=== PATIENT | female | born 1970 | race Caucasian/White ===

== ENCOUNTER 2016-04-26 06:47 | Emergency (ER) | payer OTHER ==
[~2016-04-26] VITALS: Ht 172.7 cm; Wt 90.9 kg
[~2016-04-26 06:47] MED LIST: BUPR300T51 PO; BUSP10TA2 PO; ETON68IM3 SQ; HYDR50TA76 PO; QUET50TA PO
[2016-04-26 06:54] VITALS: BP 112/78; PULSE 66; RESP 18; O2SAT 97
--- NOTE | 2016-04-26 06:55 | ED.REPORT ---
HPI-General Illness Date of Service Apr 26, 2016 ED Provider: Patient is a 45 year old female who reports to the ED reporting with intractable trapezius muscle pain onset one week ago and increasing in severity since. Pt c/o associated diaphoresis and paresthesia limited to right hand. Pt went to a massage therapist yesterday which was not helpful in relieving symptoms. She denies any associated injury that could have caused symptoms. Nursing Notes Stated Complaint: PINCHED NERVE Chief Complaint: General Complaint Nursing Notes Reviewed: Yes Allergies: Coded Allergies: No Known Allergies (Unverified Allergy, Unknown, 04/26/16) Scheduled Bupropion ER (Wellbutrin XL) 300 Mg Tab.er.24h 300 MG PO DAILY Buspirone (Buspirone) 10 Mg Tablet 10 MG PO TID Etonogestrel (Nexplanon) 68 Mg Implant 68 MG SQ DAILY Hydroxyzine HCl (HydrOXYzine Hcl) 50 Mg Tablet 100 MG PO DAILY Prednisone (PredniSONE) 20 Mg Tablet 20 MG PO ASDIRECTED 3 tabs daily for 4 days, then 2 tabs daily for 4 days, then 1 tabs daily for 4 days, then 1/2 tab daily for 4 days Quetiapine Fumarate (Seroquel) 50 Mg Tablet 50 MG PO HS Scheduled PRN Diazepam (Valium) 5 Mg Tablet 5 MG PO TID PRN PRN For Pain Naproxen (Naproxen) 500 Mg Tab 500 MG PO BID PRN PRN For Pain Oxycodone (Roxicodone) 5 Mg Tablet 5-10 MG PO QID PRN PRN For Pain General Time Seen by MD: 06:54 Chief Complaint Other (right arm pain) Hx Obtained From: Patient Arrived By: Walk-in Sudden in Onset?: Yes Onset Occurred: Yesterday Symptom Duration: Since onset Location: : Arm right: Shoulder right Radiation: : Does not radiate Severity: Current: Moderate Severity: Maximum: Moderate Recent Healthcare: No recent hospitalization Similar Sx Previous: No Past Medical History Past Medical History Anxiety Sleep apnea Reports: Depression Past Surgical History R breast lumpectomy D&C Smoking History Current Every Day Smoker Social History Parents live nearby Alcohol Use: In recovery Drug Use: In recovery, IV drugs, Meth Other Social History: Lives alone, Local resident Ambulatory Status Independent Review of Systems Full Review of Systems Musculoskeletal: Reports: Extremity pain (right arm and shoulder) Skin: Reports Diaphoresis Psychiatric: Reports: Anxiety Complete sys rev & neg: except as marked. Physical Exam Vital Signs Vital Signs Date Time Temp Pulse Resp B/P Pulse Ox O2 Delivery O2 Flow Rate FiO2 04/26/16 14:23 36.3 69 15 160/74 100 Room Air 04/26/16 14:06 69 15 160/74 100 Room Air 04/26/16 10:12 64 15 137/77 100 Room Air 04/26/16 09:15 62 14 142/83 100 Room Air 04/26/16 06:54 36.3 66 18 112/78 97 Room Air Initial VS: Reviewed Head / Eyes: Atraumatic, Normocephalic, PERRL ENT: Mucous membranes moist, Conjunctiva normal, No scleral icterus Respiratory: Breath sounds normal, Clear to auscultation, No respiratory distress Cardiovascular: Regular rate & rhythm, Heart sounds normal, Intact distal pulses Abdomen / GI: Soft, Non-tender, No guarding, No rebound, No distention Skin: Warm, Dry, No cyanosis Psychiatric: Mood/affect normal, Behavior normal, Normal thought content General/Constitutional: Awake, Alert Distress / Hydration: Positive: Distress moderate Back: Full range of motion, No midline vertebral tend right paraspinal/trapezius TTP with spasm Upper Extremities Right Shoulder: Positive: Tenderness present... (to palpatation along right trapezius muscle) pain worsens with range of motion intact motor function Skin: Atraumatic, Color NL, No rash, Warm Neurologic: Oriented X3, Speech NL, No motor deficits, No sensory deficits, Cerebellar NL, Gait NL distal paresthesia to 2nd and 3rd fingers, otherwise intact sensation to pinprick throughout the arm and distal into the abdomen, no motor loss Interpretation & Diagnostics Interpretation & Diagnostics: CERVICAL SPINE MRI IMPRESSION: 1. Most prominent level identified is at C6-7 with a disc bulge and superimposed prominent posterior protrusion, causing compromise of the right lateral recess and right foramina as above. Dictated by: Martha Sanchez M.D. on 04/26/2016 at 13:25 Approved by: Martha Sanchez M.D. on 04/26/2016 at 13:25 Lab Results Interpretation Result Diagram: 04/26/16 0910 04/26/16 0910 Test 04/26/16 09:10 04/26/16 11:27 White Blood Count 15.6th/mm3 (3.8-10.1) Red Blood Count 4.54mil/mm3 (3.90-5.20) Hemoglobin 14.3g/dL (12.0-15.6) Hematocrit 42.6% (35.0-46.0) Mean Corpuscular Volume 93.8fL (81-100) Mean Corpuscular Hemoglobin 31.5pg (27.0-35.0) Mean Corpuscular Hemoglobin Concent 33.6% (32.0-37.0) Red Cell Distribution Width 12.7% (12.3-15.4) Platelet Count 282bil/L (150-400) Neutrophils (%) (Auto) 77.8% (40-74) Lymphocytes (%) (Auto) 15.0% (14-46) Monocytes (%) (Auto) 5.5% (4-12) Eosinophils (%) (Auto) 1.1% (0-5) Basophils (%) (Auto) 0.3% (0-3) Erythrocyte Sedimentation Rate 7mm/hr (0-32) D-Dimer < 0.5mg/L (<0.50) Sodium Level 136mEq/L (134-144) Potassium Level 4.5mEq/L (3.5-5.2) Chloride Level 100mEq/L (97-108) Carbon Dioxide Level 20mmol/L (18-29) Blood Urea Nitrogen 13mg/dL (6-24) Creatinine 0.65mg/dL (0.57-1.00) Estimat Glomerular Filtration Rate 141mL/min (>59) Glucose Level 111mg/dL (60-99) Calcium Level 9.5mg/dL (8.5-10.1) Magnesium Level 2.0mg/dL (1.6-2.6) Total Bilirubin 0.4mg/dL (0.0-1.2) Aspartate Amino Transf (AST/SGOT) 20U/L (0-50) Alanine Aminotransferase (ALT/SGPT) 13U/L (0-32) Alkaline Phosphatase 55U/L (25-150) Troponin T < 0.010ug/L (0.0-0.011) C-Reactive Protein < 0.0mg/dL (0.0-0.5) Total Protein 7.7g/dL (6.4-8.4) Albumin 4.6g/dL (3.4-5.0) Hold Urine Received (Received) ECG Interpretation Interpreted by: ED physician Normal ECG Interpretation: Normal ECG w/ rate of... (62) X-Ray Chest Interpretation Chest Xray Interpretation: IMPRESSION: Normal chest radiographs, without an imaging explanation found for the patient's presenting history of chest/right shoulder pain. Dictated by: Romain Garcia M.D. on 04/26/2016 at 8:15 Approved by: Romain Garcia M.D. on 04/26/2016 at 8:15 View: Portable Interpretation / Wet Read by: Interpret - Radiologist Re-Eval/Medical Decision Med Decision/Clinical Course Ultimately this patient has some radicular symptoms from her cervical spine, MRI was obtained in the ER due to difficult to manage symptoms and persistent pain. spine surgery was consulted, and the MRI, and will see this patient tomorrow in clinic. Does not feel that this needs emergent surgical decompression. Patient will be discharged with pain management. Return precautions given. Time of Eval: 08:39 Patient Status: Condition unchanged, No relief Re-Evaluation/Progress Note: Pt rechecked. Pt is still tearful and pain meds have not lessened symptoms. Time of Eval: 10:13 Patient Status: Condition unchanged, Mild relief Re-Evaluation/Progress Note: Pt rechecked. Pt reports mild relief of pain but still experiencing numbness in right fingers. Time of Eval: 11:33 Patient Status: Mild relief Re-Evaluation/Progress Note: Pt rechecked. Informed pt of plan for MRI. Ordered more pain meds. Consultation #1: Referral / Consult Name: Kelechi Villagomez MD Call Returned at: 10:40 [place] Man: Agrees with eval, Agrees with plan Note: Case discussed with Dr. Villagomez. Recommended outpatient MRI and follow up with with Dr. Villagomez. Consultation #2: Referral / Consult Name: Kelechi Villagomez MD Call Returned at: 13:47 Note: Pt can be seen in clinic tomorrow, needs a PCP for pain pills. Counseled Regarding: Diagnosis, Lab results, Need for follow-up, When/why to return to ED Discharge & Departure Primary Impression: Cervical radiculopathy Disposition: Home Discharge Condition All VS Reviewed: Yes Condition: Stable Additional Instructions: We are so sorry that you are experiencing such terrible pain. It seems that we have identified the problem which is that you have some compression of the nerve as it comes out of the right side of your spine and we have talked with the spine surgeon who wants to see you tomorrow in clinic. Call the clinic today for a follow-up appointment. We will put you on multiple different medications to help manage your pain. Use naproxen, oxycodone, Valium, prednisone to treat your symptoms. Follow up with the spine surgeon tomorrow to further discuss treatment options. Call your primary care provider to help set up ongoing pain management. We hope that you begin feeling better soon. Referrals: Jasmine Vigil MD (PCP) Marleen Attestation Portion of this note were transcribed by Jorden Dawson. I, Dr. Altamirano, personally performed the history, physical exam, and medical decision-making: I reviewed and confirmed the accuracy for the information in the transcribed note. Signed by: marleen Myers, 04/26/16 [id number] copies to: Jasmine Vigil MD, Timothy S DO Apr 26, 2016 06:55 JORDEN DAWSON Apr 26, 2016 07:06
[2016-04-26] MEDS ORDERED: HYDROmorphone 1 mg/mL Inj IM ONE (08:25)
[2016-04-26 09:15] VITALS: BP 142/83; PULSE 62; RESP 14; O2SAT 100
--- NOTE | 2016-04-26 09:17 | DRSVH ---
PROCEDURE: X-RAY CHEST, TWO VIEWS ([id number]) INDICATIONS: chest/right shoulder pain TECHNIQUE: 2 views of the chest were acquired. COMPARISON: [facility], CR, XR CHEST 2VW, 12/17/2014, 17:09. FINDINGS: Surgical changes and devices: None. Lungs and pleura: No pleural effusions or pneumothorax. Lungs are clear. Mediastinum: Mediastinal contours are normal. Heart size is normal. Bones and chest wall: No suspicious bony abnormalities. Soft tissues appear unremarkable. IMPRESSION: Normal chest radiographs, without an imaging explanation found for the patient's presenting history o f chest/right shoulder pain. Dictated by: Romain Garcia M.D. on 04/26/2016 at 8:15 Approved by: Romain Garcia M.D. on 04/26/2016 at 8:15
[2016-04-26] MEDS: fentaNYL-PF 50 mCg/mL 2 mL Inj IVPUSH PRN ×4 (09:30→13:23)
[2016-04-26 09:32] LABS: BASOPHILS % (AUTO) 0.3 % (0-3); EOSINOPHILS % (AUTO) 1.1 % (0-5); MONOCYTES % (AUTO) 5.5 % (4-12); Mean Corpuscular Hemoglobin 31.5 pg (27.0-35.0); Mean Corpuscular Volume 93.8 fL (81-100); NEUTROPHILS % (AUTO) 77.8 % (40-74); Platelet Count 282 bil/L (150-400)
[2016-04-26 10:04] LABS: TROPONIN T < 0.010 ug/L (0.0-0.011)
[2016-04-26 10:12] VITALS: BP 137/77; PULSE 64; RESP 15; O2SAT 100
[2016-04-26] MEDS ORDERED: Ketorolac 15 mg/mL Inj IVPUSH ONE (13:20)
--- NOTE | 2016-04-26 13:26 | DRSVH ---
PROCEDURE: MRI CERVICAL SPINE WITHOUT CONTRAST ([id number]) INDICATIONS: right neck/upper back pain with radiculopathy TECHNIQUE: Noncontrast sagittal T1 spin echo and T2 fast spin echo, sagittal STIR, foraminal oblique sagittal T2 fast spin echo, and axial gradient echo or T2 fast spin echo through the cervical spine. COMPARISON: None. FINDINGS: Image quality: Excellent. Alignment and Curvature: There is reversal of the normal cervical curvature. There is trace retrolist hesis of C2 on C3, C5 on C6, C6 on C7 and trace anterolisthesis of C3 on C4. Bone Marrow: Marrow demonstrates normal overall signal. Minimal reactive endplate changes are presen t at C6-7. Spinal Cord: Visualized spinal cord has normal size and signal. No cerebellar tonsillar herniation. Paraspinous Soft Tissues: No paravertebral masses. Prevertebral soft tissues are normal in thicknes s. Discs: Mild to moderate desiccation is present throughout the cervical spine. C2-C3: No disc bulge, spinal stenosis or foraminal narrowing. C3-C4: Minimal disc bulge without spinal stenosis. Mild to moderate left and mild right foraminal lashawn rowing with uncovertebral hypertrophy. C4-C5: Minimal disc bulge without spinal stenosis. Minimal left foraminal narrowing. C5-C6: Minimal disc bulge without spinal stenosis. Mild bilateral foraminal narrowing with uncoverteb ral hypertrophy. C6-C7: Mild disc bulge with prominent posterior/right paracentral protrusion. There is significant co mpromise of the right lateral recess as well as effacement of the anterior thecal sac. This material is also noted within the proximal and mid right foramina. C7-T1: No disc bulge, spinal stenosis or foraminal narrowing. IMPRESSION: 1. Most prominent level identified is at C6-7 with a disc bulge and superimposed prominent posterior protrusion, causing compromise of the right lateral recess and right foramina as above. Dictated by: Martha Sanchez M.D. on 04/26/2016 at 13:25 Approved by: Martha Sanchez M.D. on 04/26/2016 at 13:25
[2016-04-26] MEDS ORDERED: fentaNYL-PF 50 mCg/mL 2 mL Inj IVPUSH ONE (14:05)
[2016-04-26] MEDS ORDERED: predniSONE 20 mg Tablet PO ONE (14:05)
[2016-04-26 14:06] VITALS: BP 160/74; PULSE 69; RESP 15; O2SAT 100
[2016-04-26] MEDS ORDERED: PRE20 PO (14:18)
[2016-04-26] MEDS ORDERED: DIAZ5TAB PO (14:18)
[2016-04-26] MEDS ORDERED: NPR500T PO (14:18)
[2016-04-26] MEDS ORDERED: OXYC-474 PO (14:18)
[2016-04-26 14:23] VITALS: BP 160/74; PULSE 69; RESP 15; O2SAT 100
[2016-06-02] MEDS ORDERED: LAMO25TA PO (10:35)
[2016-06-02] MEDS ORDERED: OXYC-465 PO (10:35)
[2016-06-02] MEDS ORDERED: BUSP10TA2 PO (10:35)
[2016-06-02] MEDS ORDERED: FLUT16SP NS (10:35)
[2016-06-02] MEDS ORDERED: DOCU250C2 PO (10:35)
== END 2016-04-26 14:24 | disposition home or self-care (01) ==
LOC: SED 06:47
DX: M54.12 Radiculopathy, cervical region (principal); F17.210 Nicotine dependence, cigarettes, uncomplicated
CPT/HCPCS: 36415; 71020; 72141; 80053; 83735; 84484; 85025; 85379; 85651; 86140; 93005; 96372; 96374; 96375; 96376; 99285; J1170; J1885; J3360

== ENCOUNTER 2016-05-09 05:54 | Emergency (ER) | payer OTHER ==
[~2016-05-09] VITALS: Ht 172.7 cm; Wt 90.9 kg
[~2016-05-09 05:54] MED LIST changes: +DIAZ5TAB PO; +NPR500T PO; +OXYC-474 PO; +PRE20 PO
[2016-05-09 06:02] VITALS: BP 132/79; PULSE 96; RESP 18; O2SAT 100
--- NOTE | 2016-05-09 06:12 | ED.REPORT ---
HPI-General Illness Date of Service May 09, 2016 ED Provider: Espinoza Altamirano DO The patient is a 45 year old female who presents to the emergency department complaining of a headache that began a few days ago. Her pain is constant but she repots intermittent "shooting" pain that she calls "zingers." Her pain is worse on the left side. The pain does not radiate anywhere. Over the first few nights she also noticed a fever and chills, but this has resolved. She took Ibuprofen and oxycodone 10 mg at 0400 with no relief. She has had similar symptoms intermittently since she has been a child. She was previously diagnosed with cluster headaches. She states her symptoms today are worse. She denies fever, chills, nausea, vomiting, diarrhea, cough, sore throat, photophobia, numbness, tingling or weakness. Her mother has also experienced similar symptoms. Nursing Notes Stated Complaint: HEAD PAIN Chief Complaint: Headache Nursing Notes Reviewed: Yes Allergies: Coded Allergies: No Known Allergies (Unverified Allergy, Unknown, 04/26/16) Scheduled Bupropion ER (Wellbutrin XL) 300 Mg Tab.er.24h 300 MG PO DAILY Buspirone (Buspirone) 10 Mg Tablet 10 MG PO TID Etonogestrel (Nexplanon) 68 Mg Implant 68 MG SQ DAILY Hydroxyzine HCl (HydrOXYzine Hcl) 50 Mg Tablet 100 MG PO DAILY Prednisone (PredniSONE) 20 Mg Tablet 20 MG PO ASDIRECTED 3 tabs daily for 4 days, then 2 tabs daily for 4 days, then 1 tabs daily for 4 days, then 1/2 tab daily for 4 days Prochlorperazine Maleate (Compazine) 10 Mg Tablet 10 MG PO TID Quetiapine Fumarate (Seroquel) 50 Mg Tablet 50 MG PO HS Sulfamethoxazole/Trimeth 800-160 mg (Bactrim DS) 1 Each Tablet 1 TABLET PO BID Scheduled PRN Diazepam (Valium) 5 Mg Tablet 5 MG PO TID PRN PRN For Pain Naproxen (Naproxen) 500 Mg Tab 500 MG PO BID PRN PRN For Pain Oxycodone (Roxicodone) 5 Mg Tablet 5-10 MG PO QID PRN PRN For Pain Oxycodone (Roxicodone) 5 Mg Tablet 5-10 MG PO Q4H PRN PRN For Pain General Time Seen by MD: 06:12 Chief Complaint Headache Hx Obtained From: Patient, Other family... Arrived By: Walk-in Sudden in Onset?: No Onset Occurred: 1 - 4 hours ago Symptom Duration: Since onset Location: : Head Quality: Painful (shooting) Radiation: : Does not radiate Severity: Current: Moderate Severity: Maximum: Severe Recent Healthcare: No recent hospitalization Similar Sx Previous: Yes Past Medical History Past Medical History Anxiety Sleep apnea Headaches Reports: Depression Past Surgical History R breast lumpectomy D&C Family History Noncontributory Smoking History Current Every Day Smoker Social History Parents live nearby Alcohol Use: In recovery Drug Use: In recovery, IV drugs, Meth Other Social History: Good social support, Lives alone, Local resident Ambulatory Status Independent Review of Systems Full Review of Systems Constitutional: Reports: Chills (initially, now resolved), Fever (initially, now resolved) GI: Denies: Diarrhea, Nausea, Vomiting Musculoskeletal: Denies: Extremity pain, Neck pain Neurologic: Reports: Headache, Denies: Focal weakness, Numbness Complete sys rev & neg: except as marked. Physical Exam Vital Signs Vital Signs Date Time Temp Pulse Resp B/P Pulse Ox O2 Delivery O2 Flow Rate FiO2 05/09/16 13:08 36.7 74 12 121/74 98 Room Air 05/09/16 12:52 36.7 74 12 121/74 98 Room Air 05/09/16 08:44 77 12 104/ 96 Room Air 05/09/16 06:02 37.4 96 18 132/79 100 Room Air Initial VS: Reviewed Respiratory: Breath sounds normal, Clear to auscultation, No respiratory distress Cardiovascular: Regular rate & rhythm, Heart sounds normal, Intact distal pulses Abdomen / GI: Soft, Non-tender, No guarding, No rebound, No distention Lymphatic: No lymphadenopathy Extremities: Vascular intact, Neuro intact, No swelling, No tenderness Skin: Warm, Dry, No cyanosis Psychiatric: Mood/affect normal, Behavior normal, Normal thought content General/Constitutional: Awake, Alert, Cooperative Behavior: Positive: Tearful Head / Eyes: Atraumatic, Normocephalic, PERRL, EOMI There is no tenderness, warmth, redness, rash or fluctuance. ENT: Airway patent, Mucous membranes moist, Pharynx NL, Tympanic membs NL, Ext aud canal NL, Mastoid area NL Neck: Atraumatic, Supple, No meningismus, Full range of motion, No adenopathy, No swelling, Non-tender, No midline vertebral tend, No masses Back: Non-tender, No midline vertebral tend Flank / Spine / Paraspinal: Positive: Flank tender R Neurologic: Oriented X3, Speech NL, No motor deficits, CN II - XII intact, Cerebellar NL, Memory NL Paraesthesias in right hand, 3rd and 2nd finger (unchanged from previous visit) Interpretation & Diagnostics Lab Results Interpretation Result Diagram: 05/09/16 0700 05/09/16 0700 Test 05/09/16 07:00 05/09/16 08:58 05/09/16 11:41 White Blood Count 14.9th/mm3 (3.8-10.1) Red Blood Count 3.90mil/mm3 (3.90-5.20) Hemoglobin 12.3g/dL (12.0-15.6) Hematocrit 37.0% (35.0-46.0) Mean Corpuscular Volume 94.9fL (81-100) Mean Corpuscular Hemoglobin 31.5pg (27.0-35.0) Mean Corpuscular Hemoglobin Concent 33.2% (32.0-37.0) Red Cell Distribution Width 13.0% (12.3-15.4) Platelet Count 214bil/L (150-400) Neutrophils (%) (Auto) 79.2% (40-74) Lymphocytes (%) (Auto) 9.4% (14-46) Monocytes (%) (Auto) 8.5% (4-12) Eosinophils (%) (Auto) 2.1% (0-5) Basophils (%) (Auto) 0.3% (0-3) Erythrocyte Sedimentation Rate 42mm/hr (0-32) Sodium Level 136mEq/L (134-144) Potassium Level 4.1mEq/L (3.5-5.2) Chloride Level 98mEq/L (97-108) Carbon Dioxide Level 21mmol/L (18-29) Blood Urea Nitrogen 13mg/dL (6-24) Creatinine 0.85mg/dL (0.57-1.00) Estimat Glomerular Filtration Rate 103mL/min (>59) Glucose Level 126mg/dL (60-99) Calcium Level 8.9mg/dL (8.5-10.1) C-Reactive Protein 20.1mg/dL (0.0-0.5) Procalcitonin 5.51ng/mL (See Comment) Urine Color Straw (YELLOW) Urine Appearance Hazy (CLEAR,HAZY) Urine pH 6.5 (5.0-8.0) Urine Specific [place] 1.015 (1.003-1.035) Urine Protein Tracemg/dL (NEG,TRACE) Urine Glucose (UA) Negativemg/dL (NEGATIVE) Urine Ketones Negativemg/dL (NEGATIVE) Urine Occult Blood Large (NEGATIVE) Urine Nitrite Positive (NEGATIVE) Urine Bilirubin Negative (NEGATIVE) Urine Urobilinogen Normalmg/dL (NORMAL) Urine Leukocyte Esterase Small (NEGATIVE) Urine RBC 3-10/hpf (0-2) Urine WBC 11-50/hpf (0-5) Urine Epithelial Cells Occasional/hpf (NONE-MOD) Urine Crystals None seen (NONE SEEN) Urine Bacteria Many/hpf (NONE-FEW) Urine Hyaline Casts None/lpf (NONE) Urine Granular Casts None seen (NONE SEEN) Urine Waxy Casts None seen (NONE SEEN) Urine Red Blood Cell Casts None seen (NONE SEEN) Urine White Blood Cell Casts None seen (NONE SEEN) Urine Mucus None seen (None Seen) Urine Trichomonas None seen (NONE SEEN) Urine Yeast None (NONE SEEN) Urinalysis Comment None Urine Culture Reflexed Indicated CSF Appearance Clear (CLEAR) CSF Color Colorless (COLORLESS) CSF WBC 3/mm3 (0-5) CSF RBC 2/mm3 CSF Mononuclear WBCs % CSF Polynuclear WBCs % CSF Other Cells CSF Glucose 77mg/dL (45-90) CSF Total Protein 23mg/dL (15-45) CT Head Interpretation IMPRESSION: No acute intracranial abnormality. No explanation for headache. Dictated by: Robert Tucker M.D. on 05/09/2016 at 9:21 Study: Head CT no contrast Interpretation / Wet Read by: Interpret - Radiologist Procedures Lumbar Puncture Text / Dict Note: Obtained clear fluid. Time: 10:39 Procedure Performed by: ED physician Consent / Setup / Site Prep: Informed consent provided, Consent from patient , Time-out performed, Hand hygiene observed, Stand sterile technique, Sterile drapes applied, Patient sitting up Skin Preparation Agent: Hibiclens - Chlorhexidine Local Anesthesia: Lidocaine 1% Inserted Needle at: L3 L4 Second Attempt at: L3 L4 Post-Procedure / Complications: Antibiotic oint applied, Dressing applied, No complications, Tolerated procedure well, Patient stable Re-Eval/Medical Decision Med Decision/Clinical Course This patient overall has a rather strange presentation which ultimately seems to be pyelonephritis. She has a familial headache pattern present in both her mother and her aunt with associated intermittent sharp pains to her head. Other than headache and reported fever she did have other classic findings of meningitis. Overall her symptoms do not sound like subarachnoid hemorrhage. However, given her recent steroid use and reported fever as well as a rather odd presentation for headache syndrome, the more resource intensive workup was performed which initially began with CBC, basic metabolic panel, erythrocyte sedimentation rate and CRP. She has significantly elevated sedimentation rate and CRP compared to prior. She does endorse signs of urinary tract infection and has overtly positive urine. Overall this is a difficult explanation for urinary tract infection except for the fact that she reports having these symptoms previously with infectious processes. Infectious disease was contacted and is specifically in regard to this and did recommend lumbar puncture. All of her CSF indices were normal including a rapid PCR for common infectious causes of meningitis. Ultimately it seems that this patient has a headache syndrome associated with an illness. It should be noted in relation to her acute illness, her inflammatory markers are elevated however clinically after medication with a cocktail of Compazine, Benadryl, dexamethasone, Toradol, 1 L normal saline, the patient has remained largely asymptomatic and feeling better. Her vital signs have been stable. She does not appear to be in septic shock or life-threatening illness at this time. She received 2 g of IV Rocephin in the ER while awaiting results of her CSF studies, and subsequently is requesting to go home as she is feeling somewhat better. While she does have markers of an inflammatory process going on, clinically she does not appear to be in severe sepsis or septic shock which would necessitate hospitalization, she is not in intractable pain or vomiting, and she is requesting to go home. She will be discharged on oxycodone, Compazine and Benadryl, Bactrim. Strict return and follow-up precautions are given. I certainly entertain the possibility that she may have ongoing cervical pathology or other spinal cord pathology, this is unlikely given the absence of new or progressive neurologic symptoms that would follow a dermatomal or spinal cord pattern. Her MRI from 2 weeks ago was reviewed and she did not seem to have significant upper cervical pathology. Additionally she repeatedly on multiple occasions denied an upper respiratory infection or pneumonia type symptoms, her lungs are clear and she had a recent chest x-ray. For these reasons no repeat chest x-ray was obtained. She had no focal abdominal pain and no further abdominal workup was performed for this reason. Source of Hx: Old records, Family Time of Eval: 07:40 Re-Evaluation/Progress Note: The patient is sleeping and feeling much better. Time of Eval: 08:37 Re-Evaluation/Progress Note: Rechecked the patient. She repeated that her only symptoms have been fever and headache. She has not noticed any neurologic symptoms. She specifically denies neuro deficits going down one side of her body. She states she may have a UTI because she has noticed foul smelling urine. Discussed plan for additional labs, head CT and lumbar puncture. Time of Eval: 09:30 Re-Evaluation/Progress Note: Rechecked the patient. She is feeling better. Discussed urinalysis and head CT results. The patient would not like a lumbar puncture at this time if she does not need it. Time of Eval: 10:03 Re-Evaluation/Progress Note: Rechecked the patient. Discussed plan for lumbar puncture. She is initially unwilling to have the procedure. She would like to be discharged home with antibiotics. Discussed risks and warnings of being discharged home without having the test. After discussing this further she is now agreeable with plan. Consent form signed at this time. Time of Eval: 12:02 Re-Evaluation/Progress Note: Rechecked the patient. Discussed lab results, diagnosis, and plan for discharge. All questions were addressed. Time of Eval: 12:35 Re-Evaluation/Progress Note: Rechecked the patient. She continues to be asymptomatic. We discussed that her biofire PCR is not done but that the other LP results were normal. She feels comfortable going home and agrees to return if the biofire PCR is abnormal. Consultation : Referral / Consult Name: Ed Peña MD Call Returned at: 10:03 Note: Spoke with the on-call infectious disease specialist. He recommends doing a lumbar puncture and biofire PCR. Counseled Regarding: Diagnosis, Lab results, Need for follow-up, When/why to return to ED Discharge & Departure Primary Impression: Headache Headache type: unspecified Headache chronicity pattern: unspecified pattern Intractability: not intractable Qualified Code: R51 - Headache Additional Impression: UTI (urinary tract infection) Urinary tract infection type: site unspecified Hematuria presence: with hematuria Qualified Code: N39.0 - Urinary tract infection, site not specified Disposition: Home Discharge Condition All VS Reviewed: Yes Condition: Stable Patient Instructions: Urinary Tract Infection in Women (ED) Additional Instructions: Thank you for entrusting us with your care today. Your urinalysis is consistent with a urinary tract infection. Your head CT today is normal. The results from your lumbar puncture are also negative. I have prescribed you an antibiotic for the urinary tract infection. Followup with your regular doctor in the next 2-3 days for recheck. Return to the emergency department for increased pain, neck stiffness, change in your headaches, vomiting, numbness, weakness, speech changes, vision changes, or any other new or concerning symptoms. Referrals: Jasmine Vigil MD (PCP) Scribe Attestation Portions of this note were transcribed by Janie Ham. I, Dr. Altamirano personally performed the history, physical exam and medical decision-making; I reviewed and confirmed the accuracy of the information in the transcribed note. Signed by: Diallo Etienne, 05/09/2016 and 1300. copies to: Jasmine Vigil MD, Timothy S DO May 09, 2016 06:12 Janie Ham May 09, 2016 06:37
[2016-05-09] MEDS ORDERED: ProchlorPERazine 5 mg/mL 2 mL Inj IVPUSH ONE (06:40)
[2016-05-09] MEDS ORDERED: 0.9% Sodium Chloride 1,000 ML IV ONE (06:40)
[2016-05-09] MEDS ORDERED: Dexamethasone 10 mg/mL Inj IVPUSH ONE (06:40)
[2016-05-09 07:30] LABS: BASOPHILS % (AUTO) 0.3 % (0-3); EOSINOPHILS % (AUTO) 2.1 % (0-5); MONOCYTES % (AUTO) 8.5 % (4-12); Mean Corpuscular Hemoglobin 31.5 pg (27.0-35.0); Mean Corpuscular Volume 94.9 fL (81-100); NEUTROPHILS % (AUTO) 79.2 % (40-74); Platelet Count 214 bil/L (150-400)
[2016-05-09 08:38] LABS: ERYTHROCYTE SEDIMENTATION RATE 42 mm/hr (0-32)
[2016-05-09 08:44] VITALS: BP_SYST 104; PULSE 77; RESP 12; O2SAT 96
[2016-05-09 09:13] LABS: APPEARANCE,URINE HAZY (CLEAR,HAZY); COLOR,URINE STRAW (YELLOW); OCCULT BLOOD,URINE LARGE (NEGATIVE); PH,URINE 6.5 (5.0-8.0); UROBILINOGEN,URINE NORMAL (NORMAL)
--- NOTE | 2016-05-09 09:23 | DRSVH ---
PROCEDURE: CT BRAIN WITHOUT CONTRAST ([id number]) INDICATIONS: headache, elevated ESR, CRP TECHNIQUE: Noncontrast 4.5 mm thick angled axial sections acquired from the foramen magnum to the vertex, with c oronal reformats. COMPARISON: None. FINDINGS: Image quality: Excellent. CSF spaces: Basal cisterns are patent. No extra-axial fluid collections. Ventricles are normal in size and shape. Brain: No midline shift. No intracranial masses or hemorrhage. [place]-white matter interface is norm al. Skull and face: Calvarium and visualized facial bones are intact, without suspicious lesions. Sinuses: Visualized sinuses and mastoids are clear. IMPRESSION: No acute intracranial abnormality. No explanation for headache. Dictated by: Robert Tucker M.D. on 05/09/2016 at 9:21 Approved by: Robert Tucker M.D. on 05/09/2016 at 9:22
[2016-05-09] MEDS ORDERED: cefTRIAXone Inj 2,000 MG in Dextrose 5% Minibag Plus 50 ML IV ONE (09:35)
[2016-05-09 11:55] LABS: APPEARANCE,CSF CLEAR (CLEAR); COLOR,CSF COLORLESS (COLORLESS); WHITE BLOOD CELL,CSF 3 /mm3 (0-5)
[2016-05-09] MEDS ORDERED: OXYC-474 PO (12:51)
[2016-05-09] MEDS ORDERED: SULF1TAB7 PO (12:51)
[2016-05-09] MEDS ORDERED: PROC-4 PO (12:51)
[2016-05-09 12:52] VITALS: BP 121/74; PULSE 74; RESP 12; O2SAT 98
[2016-05-09 13:08] VITALS: BP 121/74; PULSE 74; RESP 12; O2SAT 98
[2016-06-02] MEDS ORDERED: OXYC-465 PO (10:35)
[2016-06-02] MEDS ORDERED: FLUT16SP NS (10:35)
[2016-06-02] MEDS ORDERED: DOCU250C2 PO (10:35)
[2016-06-02] MEDS ORDERED: LAMO25TA PO (10:35)
[2016-06-02] MEDS ORDERED: BUSP10TA2 PO (10:35)
== END 2016-05-09 12:52 | disposition home or self-care (01) ==
LOC: SED 05:54
DX: R51 Headache (principal); N39.0 Urinary tract infection, site not specified; B96.20 Unspecified Escherichia coli [E. coli] as the cause of diseases classified elsewhere; R20.2 Paresthesia of skin; F17.200 Nicotine dependence, unspecified, uncomplicated
CPT/HCPCS: 36415; 62270; 70450; 80048; 81000; 82308; 82945; 84155; 85025; 85651; 86140; 87040; 87070; 87077; 87086; 87088; 87150; 87186; 87205; 87496; 87498; 87529; 87532; 87798; 89051; 96361; 96365; 96375; 99285; J0696; J0780; J1100; J1200; J7030

== ENCOUNTER 2016-06-06 09:53 | Inpatient (IN) | payer OTHER ==
--- NOTE | 2016-06-01 18:50 | PCM.HPSURG ---
Subjective Date of Service: May 22, 2016 Referring Provider: Admitting Physician: Primary Care Physician: Jasmine Vigil MD Attending Physician: Kelechi Villagomez MD Chief Complaint SEE BELOW History of Present Illness Patient: Opal Can Date of : 1970 Visit Type: Pre Op Visit Date: 05/22/2016 01:00 PM This 45 year old female presents for Preop C6-7 ACDF w/ allograft & plating. History of Present Illness: 1. Preop C6-7 ACDF w/ allograft & plating Opal Can is a 45 year old female referred by Primary Care Provider (PCP) Dr. Jasmine Vigil M.D. who presents today's date 05/22/2016 for a preoperative type of appointment concerning the decision for surgery involving C6-7 anterior cervical discectomy and fusion, with allograft bone, & anterior cervical plating from C6-7 secondary to a diagnosis of cervical disc herniation with myeloradiculopathy with related complaints of severe, intractable, and debilitating headache, neck pain, & spasm referred & radiating to bilateral shoulders & right upper extremity with numbness, paresthesias, dysesthesias & weakness including difficulty with coordination, dexterity, & bladder spasticity. This patient was last evaluated by Dr. Kelechi Villagomez M.D. on 05/18/2016 documenting a 4 year history of mild constant local neck pain with flareups of more intense pain associated with headache and stiffness. She is also had episodes of radiating pain and right shoulder blade over the past 4 years that usually occur in the morning when she first wakes up. She developed severe right arm pain primarily involving the posterior forearm and middle digits. She reports constant numbness and paresthesias in the right hand and middle digits in a C7 distribution. She was seen in the emergency room 04/26/2016 for intractable neck and right arm pain. An MRI scan of the cervical spine show a right C6-7 disc protrusion causing a subtle compression of the right anterior cord, lateral recess stenosis and compression of the right C7. She was discharged from the emergency room with a supply of oral steroids, anti- inflammatory agents, muscle relaxants and narcotic analgesics. She was seen in consultation urgently by Neurosurgery on 04-27-2016 and referred to her primary care provider for management of her pain control and a trial of medical management. It should be noted that this patient has a history of cigarettes for the past 25 year, but quit smoking 9 days ago, to prepare for surgery. This patient has some symptoms suggestive of cervical myelopathy including tightness of the musculature in the mid thoracic region, jitteriness in her hands, some loss of coordination in her hands with deterioration of her handwriting and bladder spasticity voiding 2-3 times at night over the past 2-3 years. She had a progression of right hand numbness, paresthesias and pharmacy coordinator weakness, and was here for re-evaluation. Because of the progression of symptoms of cervical myelopathy and radiculopathy, she will be scheduled promptly for surgery, C6-[address] Kelechi Villagomez M.D. the patient has cervical disc herniation causing significant symptomatic & intractable myeloradiculopathy indicating neurosurgical decompression, fusion, & instrumented stabilization. Dr. Villagomez and the patient discussed all the risks and benefits associated with the proposed procedure as well as reasonable expectations with regards to surgical outcomes & the patient elected to proceed with surgery as planned. The patient denies any related complete or acute loss of control of bowel or bladder function, saddle paresthesia or anesthesia. The patient has a pertinent positive past medical, surgical and social history for tubal ligation, colposcopy, benign breast lumpectomy, history of constipation, depression, anxiety, & just quit smoking after 25 years. The patient's related complaints have been a serious detriment to their happiness and activities of daily living. Having failed conservative treatment the patient presents today for their decision for surgery appointment involving C6-7 anterior cervical discectomy and fusion, with allograft bone, & anterior cervical plating from C6-7 for treatment of cervical disc herniation with myelopathy & radiculopathy; related to severe, intractable, and debilitating headache, neck pain, & spasm referred & radiating to bilateral shoulders & right upper extremity with numbness, paresthesias, dysesthesias & weakness including difficulty with coordination, dexterity, & bladder spasticity. The procedure is scheduled to be performed by Dr. Kelechi Villagomez M.D. on 2016. Problem List: Problem Description Current smoker Medical/Surgical/Interim History Reviewed, no change. Last detailed document date:05/22/2016. Family History: Reviewed, no changes. Last detailed document date:05/22/2016. Social History (Reviewed, updated) 05/22/2016 Tobacco use reviewed. Preferred language is Amharic. The patient does not need an process operator. Smoking status: Former smoker. Smoking Status Use Status Type Smoking Status Years Used Total Pack Years yes Cigarette Former smoker Allergies: Ingredient Reaction Medication Name Comment NO KNOWN ALLERGIES Reviewed, no changes. Review of Systems System Neg/Pos Details MS Positive Back pain, Muscle weakness, Neck stiffness. Neuro Negative Dizziness, headache and seizures. ENMT Negative Hearing loss. Integumentary Negative Mrsa and rash. Negative Dysuria, urge incontinence and urinary incontinence. GI Negative Abdominal pain, constipation, diarrhea, nausea and vomiting. Endocrine Negative Weight gain and weight loss. Cardio Negative Chest pain, irregular heartbeat/palpitations, leg swelling and pacemaker. Constitutional Negative Chills and fever. Vic/Lymph Negative Blood clots. MS Negative Bone/joint symptoms. Eyes Negative Double vision and vision loss. Psych Negative Anxiety and depression. Respiratory Negative Dyspnea, apnea and wheezing. Vital Signs Height Time ft in cm Last Measured Height Position % 12:51 PM 5.0 8.50 173.99 03/27/2014 Weight/BSA/BMI Time lb oz kg Context % BMI kg/m2 BSA m2 12:51 PM 195.80 88.813 dressed with shoes 29.34 2.07 Blood Pressure Time BP mm/Hg Position Side Site Method Cuff Size 12:51 PM 124/78 sitting left wrist automatic adult Temperature/Pulse/Respiration Time Temp F Temp C Temp Site Pulse/min Pattern Resp/ min 12:51 PM 97.2 36.2 84 regular Pain Scale Time Pain Score Method 12:51 PM 3/10 Numeric Pain Intensity Scale Measured By Time Measured by 12:51 PM Rosa Vasquez MA Screening Summary:o The following were reviewed: tobacco use Physical Exam Exam Findings Details Comments WD/WN, female who is AO x 3, cooperative,& appears to be in NAD w/ language & speech that is intact & fluent. There is no evidence of recent or remote memory impairment. The patient's knowledge is appropriate for age & level of education w/ a pleasant affect & euthymic mood. Ambulates w/ no difficulty. NC/AT, PERRL, EOMI, w/o facial droop, hearing grossly intact, nostrils patent, oral cavity and pharynx normal. Neck supple, w/o LAD or thyromegaly. Heart reveals RRR w/o audible murmurs Lungs CTAB Abdomen is NT/ND Decreased ROM of Cervical Spine Neg Spurlings, positive Hoffmans right, Neg Lhermittes Neg Tinnels, Neg Phalens, tenderness over the right cubital tunnel causing pain in an ulnar distribution to the mid forearm Motor Strength: 4+ /5 sensation right tricep & right hand pharmacy coordinator 4/5, otherwise 5/ 5 throughout in UEs and LEs Diminished sensation in the right hand in a C6 & C7 distribution DTRs, are 2+ in UEs and LEs, no clonus Assessment/Plan # Detail Type Description 1. Assessment Cervical myelopathy with cervical radiculopathy (M47.12). 2. Assessment Preop examination (Z01.818). Patient Plan We including your Attending Surgeon have discussed the risks and benefits associated your scheduled procedure which you have verbally acknowledged understanding including but not limited to the possibility of an outcome that we are unable to predict or was not mentioned. 1. You are scheduled for a C6-7 anterior cervical discectomy and fusion, with allograft bone, & anterior cervical plating from C6-[address] Kelechi Villagomez M.D. at [facility] on 06/06/2016. 2. Check in time is 11:30 AM. Also please ignore instructions below if told otherwise by your preadmission nurse or if you do not take the medications listed below. 3. Nothing to eat after midnight the night before surgery. You may take all of your "approved" medications with small sips of water. Remember to take your a.m. hypertension medication if it is a beta mahad and ends in "olol. Otherwise ask your doctor if you need to hold your a.m. hypertension medication. 4. No aspirin, ibuprofen, Naprosyn, or other NSAIDs starting 7 days prior to surgery. 5. Please stop Warfarin/Coumadin or other blood thinners such as Plavix, Aggrenox, or Xarelto 7 days prior to your surgical procedure and follow specific instructions from your prescribing provider. 6. Please stop Lovenox bridging in the morning one day prior to procedure. 7. Please stop Suboxone/Buprenorphine at least 4 days prior to procedure. 8. Go to the hospital today to get her preoperative testing done. Take the order form to the surgery desk on the second floor of the [facility] (main entrance next to the emergency entrance). I will notify you if there is any test results that require further workup prior to surgery. 9. Follow the instructions you were given today, use the cleansing cloths the night before as well as the morning of her surgery. 10. If you are prescribed inhalers, CPAP or BiPAP machines you use at home bring along with you to the hospital. 11. ONLY If you take medications for Diabetes: If you have an insulin pump continue lowest (typically night-time) basal rate into the a.m. If you do not have a pump check h your a.m. blood sugar and hold insulin if BS less than 100. If you are taking long-acting, intermediate acting (NPH) or 70/30 preparation : Take half on day of procedure. If you are taking ultra long-acting insulin such as glargine, Lantus either at night or in the a.m. continue as scheduled ( including day of surgery). If you take short acting regular insulin (insulin not delivered via pump) discontinue on day of procedure. 12. Please call if you have any questions before your surgery: [phone]. Today's instructions/counseling include(s) Pre-operative instructions given to the patient and or legal manufacturers service representative(s) orally and in writing. 13. Our office will contact you if there are any test results that require further workup prior to surgery. Provider Plan The patient's history and examination as well as radiological findings were reviewed with Dr. Kelechi Villagomez M.D. and conveyed the patient in detail. The findings are consistent with cervical disc herniation with myeloradiculopathy and are most likely the cause of the patient's severe, intractable, and debilitating headache, neck pain, & spasm referred & radiating to bilateral shoulders & right upper extremity with numbness, paresthesias, dysesthesias & weakness including difficulty with coordination, dexterity, & bladder spasticity. The patient has failed extensive conservative treatment for this condition. The treatment options were discussed with the patient. The options include attempt to live with the condition, reattempt conservative treatment, try a pain management intervention / injection or consider a surgical intervention. We are not extremely optimistic that further conservative treatment, pain management intervention and/or injection will adequately resolve the patient's symptoms of severe, intractable, and debilitating headache, neck pain, & spasm referred & radiating to bilateral shoulders & right upper extremity with numbness, paresthesias, dysesthesias & weakness including difficulty with coordination, dexterity, & bladder spasticity. Therefore we recommend C6 7 anterior cervical discectomy and fusion, with allograft bone & anterior cervical plating from C6-7. The patient was provided/offered educational materials pertaining to their diagnosis and the above discussed procedure. We discussed the risks and benefits associated with this surgery. A spine model was used to explain the nature of this type of surgery. The risk of the required anesthesia was also mentioned including but not limited to organ failure such as heart attack, pneumonia and stroke even . The risk of this type of surgery was also mentioned. Including but not limited to an unsuccessful outcome, residual symptoms, odynophagia, dysphasia or sore throat, referred or radiating posterior spinal myofascial inflammatory pain or spasm, post operative instability, instrumentation failure, sensory changes, blood loss, blood clots, wound infection, spinal cord or nerve damage, CSF or lymph leak, damage to neighboring structures such as the recurrent laryngeal nerve, perforation of the esophagus or trachea, adjacent level disease, contraindication to MRI, Mack's Syndrome, vision loss, voice change, resulting in temporary or permanent dysfunction, even disability, paralysis, and . The recovery of this type of surgery was also mentioned. The chances for improvement of the related upper extremity cervical radiculopathy symptomology at one year is 70-80%. The chances of improvement of local mechanical neck pain is 50%. This includes but is not limited to reasonable expectations for the treatment of myelopathy involving the surgical decompression of the cervical spinal cord; which will stop the progression of the patient's condition but cannot guarantee improvements in any associated physical complaints. The patient verbalized understanding all the risks and benefits, knowing that it is impossible to predict or guarantee every surgical outcome; and would like to proceed with the above discussed procedure anyways. Surgery is scheduled for 06/06/2016. The standard [facility] preoperative screening tests, medicine restrictions, and logistical protocols apply. Any preoperative testing is within normal limits to undergo the above discussed procedure unless otherwise noted in the medical record. Medications (added, continued or stopped this visit): Start Date Medication Directions Stop Date 03/27/2014 buspirone 10 mg tablet take 1 tablet by oral route 3 times every day 05/22/2016 docusate sodium 250 mg capsule take 1 capsule by oral route 2 times every day 11/25/2015 fluticasone 50 mcg/actuation nasal spray,suspension inhale 2 spray by Intranasal route every day in each nostril lamotrigine 25 mg tablet take 2 tablet by oral route 2 times every day Naprosyn take 1 tablet by oral route 2 times every day with food oxycodone-acetaminophen 5 mg-325 mg tablet take 1 tablet by oral route every 6 hours as needed 06/05/2016 Percocet 7.5 mg-325 mg tablet take 1 - 2 tablet by oral route every 4-6 hours as needed not to exceed 8 tablets per 24hrs prednisone take 1 tablet by oral route 3 times every day Valium take 1 tablet by oral route 2 times every day and 2 tabs each evening 06/05/2016 Valium 5 mg tablet take 1 - 2 Tablet by oral route every 8 hours for spasm Counseling/Educational Factors: Counseling / educational factors reviewed. Counseling / educational factors reviewed. This is a visit of 60 minutes. 50 minutes were spent counseling. This document may have been created using voice recognition software or other electronic means and may contain inadvertent sofa inspector errors. Provider: Ben KIM 05/22/2016 03:24 PM Document generated by: Ben Monae 05/22/2016 03:24 PM CC Providers: Jasmine Vigil [address] [place] [address]- Jasmine Vigil [address] [place] [address] [address] [place] [address] w daniel palmer i n i darius s . 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 (hx of right breast lumpectomy) Denies: Currently ? Pelvic Inflammatory DX Skin History Skin History: Denies:: History Skin Disorders? 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
[~2016-06-06] VITALS: Ht 172.7 cm; Wt 90.0 kg
[2016-06-06] VITALS (13 sets, daily range): BP systolic 112–146; BP diastolic 65–83; PULSE 69–110; RESP 13–18; O2SAT 95–99
[~2016-06-06 09:53] MED LIST changes: -BUPR300T51 PO; +Bacitracin 50,000 unit Inj IRRIGATION ONE; +CeFAZolin Inj 2 GM in IV Premix 1 EACH IV ONE; -DIAZ5TAB PO; +DOCU250C2 PO; -ETON68IM3 SQ; +FLUT16SP NS; -HYDR50TA76 PO; +LAMO25TA PO; +Lactated Ringer's 1,000 ML IV SCH; -NPR500T PO; +OXYC-465 PO; -OXYC-474 PO; -PRE20 PO; -QUET50TA PO; +Thrombin Powder 5,000 Unit TOPICAL ONE
[2016-06-06] MEDS ORDERED: CeFAZolin Inj 2 gm / 50mL D5W IV ONE (10:09)
[2016-06-06] MEDS ORDERED: Lactated Ringer's 1,000 ML IV ONE ×2 (10:18→13:57)
[2016-06-06] MEDS ORDERED: Thrombin Powder 5,000 Unit TOPICAL ONE ×2 (11:13→12:05)
[2016-06-06] MEDS ORDERED: Bacitracin 50,000 unit Inj ONE (11:14)
[2016-06-06] MEDS ORDERED: Bacitracin 50,000 unit Inj XX ONE (12:05)
[2016-06-06] MEDS ORDERED: Gelatin Sponge 12-7 MM TOPICAL ONE (12:05)
[2016-06-06] MEDS ORDERED: Bupivacaine-MPF 0.5% 30 mL Inj INJ ONE (12:06)
[2016-06-06] MEDS ORDERED: hydrALAZINE 20 mg/mL Inj IVPUSH PRN (12:15)
[2016-06-06] MEDS ORDERED: EPHEDrine Sulfate 50 mg/mL Inj IVPUSH PRN (12:15)
[2016-06-06] MEDS ORDERED: Lactated Ringer's 500 ML IV PRN (12:15)
[2016-06-06] MEDS ORDERED: Phenylephrine 10,000 mCg/mL Inj IVPUSH PRN (12:15)
[2016-06-06] MEDS ORDERED: MetoCLOpramide 5 mg/mL 2 mL Inj IVPUSH PRN (12:15)
[2016-06-06] MEDS ORDERED: Atropine 0.4 mg/mL Inj IVPUSH PRN (12:15)
[2016-06-06] MEDS ORDERED: Ondansetron 2 mg/mL 2 mL Inj IVPUSH PRN ×2 (12:15→14:30)
[2016-06-06] MEDS ORDERED: Labetalol 5 mg/mL 4 mL Inj IV PRN (12:15)
[2016-06-06] MEDS ORDERED: Lactated Ringer's 1,000 ML IV SCH (12:15)
--- NOTE | 2016-06-06 12:15 | PCM.HPANE ---
Patient Data Surgeon Admitting Provider: Attending Provider:Kelechi Villagomez MD Primary Care Physician:Ishmael Crawford MD Other Provider:Hali Griffithingham Anesthesia Reason for Visit Herniated Nucleus Pulposus With Myelopathy Ht/WT & BMI Height (Feet): 5 Height (Inches): 8.5 Weight (Kilograms): 88.91 Body Mass Index 29.00 Allergies Coded Allergies: No Known Allergies (Unverified Allergy, Unknown, 04/26/16) Past Anesthesia History Anesthesia History: Denies:: Abnormal Airway, Anesthesia Reactions, Difficult Intubation, Fam Anesthesia Reaction Diabetes History Hx Diabetes?: No MRSA MRSA: No Medications Hypertension Medication: No Home Meds Incl Beta Guillermo: No Reported Medications oxyCODONE-Acetaminophen 7.5-325 mg 1 Each Tablet1-2 Tab PO Q4H PRN For Pain Ref 0 06/02/16 Lamotrigine 25 Mg Hservj51 Mg PO HS Ref 0 06/02/16 Fluticasone Propionate (Fluticasone Propionate Nasal)16 Gm [place].susp2 [place] NS BID #16 GM Ref 0 06/02/16 Docusate Sodium 250 Mg [id number] Mg PO BID PRN For Constipation Ref 0 06/02/16 Buspirone 10 Mg Yymepl27 Mg PO TID Ref 0 06/02/16 Discontinued Reported Medications Bupropion ER (Wellbutrin XL)300 Mg Tab.er.00b830 Mg PO DAILY Ref 0 08/18/15 Hydroxyzine HCl (HydrOXYzine Hcl)50 Mg Bvjlek163 Mg PO DAILY Ref 0 08/18/15 Buspirone 10 Mg Woeopb55 Mg PO TID Ref 0 08/18/15 Etonogestrel (Nexplanon)68 Mg Vgeajjc29 Mg SQ DAILY 08/18/15 Discontinued Scripts Prochlorperazine Maleate (Compazine)10 Mg Urhltd12 Mg PO TID #15 TABLET Prov:Espinoza Altamirano DO 05/09/16 Sulfamethoxazole/Trimeth 800-160 mg (Bactrim DS)1 Each Tablet1 Tablet PO BID # 20 TABLET Ref 0 Prov:Espinoza Altamirano DO 05/09/16 Oxycodone (Roxicodone)5 Mg Tablet5-10 Mg PO Q4H PRN For Pain #16 TABLET Prov:Espinoza Altamirano DO 05/09/16 Prednisone (PredniSONE)20 Mg Yunnbq39 Mg PO ASDIRECTED #26 TABLET Ref 0 3 tabs daily for 4 days, then 2 tabs daily for 4 days, then 1 tabs daily for 4 days, then 1/2 tab daily for 4 days Prov:Espinoza Altamirano DO 04/26/16 Oxycodone (Roxicodone)5 Mg Tablet5-10 Mg PO QID PRN For Pain #24 TABLET Ref 0 Prov:Espinoza Altamirano DO 04/26/16 Diazepam (Valium)5 Mg Tablet5 Mg PO TID PRN For Pain #15 TABLET Ref 0 Prov:Espinoza Altamirano DO 04/26/16 Naproxen 500 Mg Iqj288 Mg PO BID PRN For Pain #30 TABLET Ref 0 Prov:Espinoza Altamirano DO 04/26/16 Quetiapine Fumarate (Seroquel)50 Mg Synzvf26 Mg PO HS #30 TABLET Ref 0 Prov:Lui Goodwin MD 08/19/15 History History of ENT Problems?: No HEENT History: Denies:: Abnormal Airway Cataracts Difficult Intubation Dysphagia Glaucoma Hearing Problem Sinus Problem TMJ Hx of Heart Problems?: No Cardiovascular History: Denies:: AICD Atrial Fibrillation Cardiac Surgery Chest Pain Congestive Heart Failure Edema Heart Murmur Hypertension Irregular Heartbeat Pacemaker Peripheral Vascular Rheumatic Fever Hx of Respiratory Problem?: No Respiratory History: Denies:: Asthma COPD Emphysema Oxygen Administration Pneumonia Tuberculosis Use of C-PAP Machine Use of Inhalers / NEBS Hx Neurologic Problems?: No Neurological History: Denies:: CVA Dizziness Headaches (prone to getting headaches) Multiple Sclerosis Parkinson's Disease Seizures Hx of GI Problems?: No Gastrointestinal History: Denies:: Cirrhosis Gall Bladder Disease Gastroesphageal Reflux Heartburn Hiatal Hernia Liver Disease Hx of Problems?: No Genitourinary History: Denies:: Kidney Stones Urinary Tract Infection Female Hx: Positive for:: Problems with Breasts? (hx of right breast lumpectomy) Denies:: Currently (tubal ) Pelvic Inflammatory Skin History: Denies:: History Skin Disorders? Pressure Ulcers Hx Musculoskeletal Problems?: Yes Musculoskeletal History: Positive for:: Back Injury (C6-7 current admission problem) Denies:: Fibromyalgia Joint Replacement Musculoskeletal Trauma Myasthenia Gravis Osteoarthritis Rheumatoid Arthritis Hx of Psycho/Social Problems?: Yes Psycho Social History: Positive for:: Anxiety Hx Surgeries?: Yes (D&C 2014, cyst removed from right breast at age 24, hysteroscopy) Hx Any Other Health Problems?: Yes Other History: Denies:: Cancer Thyroid Disease History Blood Transfusions: Positive for:: Accept Blood Products? Denies:: Blood Transfusions Hx Diabetes: No Hx Alcohol Use: NoHx Substance Use: No (clean from methamphetamines and opiates ) Smoking Status: Current Every Day Smoker Have You Smoked inLast 12 mo: Yes (trying to quit- ) Stop/Bang S-Snoring: Do You Snore Loudly: No T-Tired: feel tired, fatigued: No O-Obsered: Observed not breath: No P-Blood Pressure: treated: No B- Body Mass Index > 35 kg/m2: No A- Age over 50: No N- Neck Large Circumference: No G- Gender Male: No ARTEMIO Total Score: 0 ARTEMIO Risk Assessment: Low Risk, <3 Yes Risk Assessment Category Category 1A: Patient has history of documented sleep apnea, and HAS NOT received any narcotic, sedative or anesthesia administration during this stay. Category 1B: Patient has history of documented sleep apnea, and HAS received any narcotic , sedative or anesthesia administration during this stay Category 2: Patient has SUSPECTED Obstructive Sleep Apnea, and HAS received any narcotic , sedative or anesthesia administration during this stay. Category 3: Patient has SUSPECTED Obstructive Sleep Apnea and HAS NOT received narcotic, sedative or anesthesia administration during this stay. Category 4: Outpatient in Procedural Areas with known sleep apnea or who screen positive for High Risk via the STOP/BANG questionnaire. Exam Exam Vital Signs Vital Signs Date Time Temp Pulse Resp B/P Pulse Ox O2 Delivery O2 Flow Rate FiO2 06/06/16 10:17 36.6 72 14 136/82 97 Room Air General Appearance: Alert, Oriented X3, Cooperative, No Acute Distress HEENT/AIRWAY: MP 1, MP 2, Neck Movement (limited to pain on full extension) Lungs: Clear to Auscultation, Normal Air Movement Heart: Exam Unremarkable, Regular Rate/Rhythm, No Murmurs/Rubs/Gallops Meds/Labs/Diagnostics Admission Meds Current Medications Lactated Ringer's (Lr) 1,000 ml @ ud STK-MED ONCE IV Last administered on 06/06t 10:18; Start 2/28/17 at 10:18; Stop 06/06/16 at 10:19; Status DC Plan Impression Patient chart reviewed, patient interviewed and anesthestic plan with risks, benefits, and alternatives discussed, and informed consent obtained. NPO Status: > 8 HOURS ASA Physical Status: ASA2 Mod Systemic Disease Anesthetic Support Modalities: Quinby Scope Anesthetic Plan: GA Bene/Risks/Altern/Consents: Yes HP Complete Prior to Induction: Yes Vicente Tomlinson MD Jun 06, 2016 10:21
--- NOTE | 2016-06-06 12:39 | DRSVH ---
PROCEDURE: X-RAY CERVICAL SPINE, 1 VIEW INDICATIONS: CERVICAL MYELOPATHY TECHNIQUE: Single lateral view of the cervical spine acquired. COMPARISON: None. FINDINGS: Bones: Single intraoperative view demonstrates localization anteriorly at C5-6 and at C6-7. Soft tissues: The patient is intubated and an orogastric tube is present. IMPRESSION: Single intraoperative view localizing C5-6 and C6-7. Dictated by: Cassy Quiñones M.D. on 06/06/2016 at 12:36 Approved by: Cassy Quiñones M.D. on 06/06/2016 at 12:37
--- NOTE | 2016-06-06 14:21 | PCM.ANEP1 ---
Post Anesthesia Phase 1 PACU Phase 1 Assessment Date of Service: May 22, 2016 Vital Signs Vital Signs Date Time Temp Pulse Resp B/P Pulse Ox O2 Delivery O2 Flow Rate FiO2 06/06/16 10:17 36.6 72 14 136/82 97 Room Air Anesthetic Administered: GA Level of Alertness: Awake, talking ALEXANDER's with Equal Strength: Yes Pain: Yes (HM given in PACU) Nausea or Vomiting: No Oxygen Delivery: Simple Mask Lungs: Clear to Auscultation, Normal Air Movement Summary VSS Vicente Tomlinson MD Jun 06, 2016 14:21
--- NOTE | 2016-06-06 14:24 | PCM.ANEP2 ---
Post Anesthesia Evaluation ASA/CMS Post Anesthesia VS in Patient's Normal Range?: Yes Resp Stable; Airway Patent?: Yes CV Function & Hydration Stable: Yes Mental Status Recovered?: Yes Pain control Satisfactory?: Yes N/V Control Satisfactory?: Yes Vicente Tomlinson MD Jun 06, 2016 14:24
[2016-06-06] MEDS ORDERED: Promethazine 12.5 mg/50 mL-NS 12.5 MG in IV Premix 1 EACH IV PRN (14:25)
[2016-06-06] MEDS ORDERED: HYDROmorphone 1 mg/mL Inj IVPUSH PRN (14:30)
[2016-06-06] MEDS ORDERED: Benzocaine-Menthol Lozenge 2/Pkg PO PRN (14:30)
[2016-06-06] MEDS ORDERED: Polyethylene Glycol (PEG) 17 Gm Powder PO PRN (14:30)
[2016-06-06] MEDS ORDERED: Sodium Biphos-Phos 133 mL Enema RECTAL PRN (14:30)
[2016-06-06] MEDS ORDERED: Magnesium Hydroxide 10 mL Oral Concentration PO PRN (14:30)
[2016-06-06] MEDS ORDERED: Senna-Docusate 8.6-50 mg Tablet PO PRN (14:30)
[2016-06-06] MEDS: fentaNYL-PF 50 mCg/mL 2 mL Inj IVPUSH PRN ×2 (14:31→14:41)
[2016-06-06] MEDS: HYDROmorphone 1 mg/mL Inj IVPUSH PRN ×2 (15:01→20:28)
--- NOTE | 2016-06-06 15:35 | NUR ---
PostOp Pt arrived to OSC unit, 1011, from PACU at 1535. Arrived via bed. A&Ox3, ALEXANDER - gen weakness, Denies numbness/tingling, VSS - on 2L NC - will place CPOx, Dressing to neck CDI with soft collar in place for comfort, IV patent and infusing, KVNG draining sanguineous output, C/o pain 09/16 - will admin pain medications when verified by pharmacy. Personal belongings brought down by family. SCDs on. [place] in place. Care continues.
[2016-06-06] MEDS ORDERED: Glycopyrrolate 0.2 mg/mL 5 mL Inj ONE (15:57)
[2016-06-06] MEDS ORDERED: Rocuronium 10 mg/mL 5 mL Inj ONE (15:57)
[2016-06-06] MEDS ORDERED: EPHEDrine/NS 5 mg/mL 5 mL Syringe ONE (15:57)
[2016-06-06] MEDS ORDERED: Neostigmine 1 mg/mL 5 mL Inj ONE (15:57)
[2016-06-06] MEDS ORDERED: Propofol 10,000 mCg/mL 20 mL Inj ONE (15:57)
[2016-06-06] MEDS ORDERED: Ondansetron 2 mg/mL 2 mL Inj ONE (15:57)
[2016-06-06] MEDS ORDERED: Succinylcholine Chloride 20 mg/mL 5 mL Inj ONE (15:57)
[2016-06-06] MEDS ORDERED: Dexamethasone 4 mg/mL Inj ONE (15:57)
[2016-06-06] MEDS: Dexamethasone 4 mg/mL Inj IVPUSH SCH ×2 (16:41→20:28)
[2016-06-06] MEDS: BusPIRone 15 mg Dividose Tablet PO SCH ×2 (16:45→20:40)
--- NOTE | 2016-06-06 16:45 | NUR ---
Attempted to do Incentive Spirometer instruct with pt. Pt. in pain. Requested instruct to be done later. Nsg aware. Pt. on 2 lpm NC, 97%/83/RR 20. Addendum: 06/06/16 at 1648 by MADAN OTERO [facility] Incentive spirometer outside of pt. room.
--- NOTE | 2016-06-06 17:26 | OP ---
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 POSTOPERATIVE DIAGNOSIS(ES): PROCEDURE: C6-7 anterior cervical diskectomy and fusion with allograft bone and C6-7 anterior plating. SURGEON: First grapple operator: Kelechi Villagomez MD SNOW PLOW OPERATOR: Ben Monae PA-C ANESTHESIA: General, with Dr. Vicente Tomlinson. ESTIMATED BLOOD LOSS: 50 mL. DRAINS: One KVNG. COMPLICATIONS: None. INDICATIONS: This patient presented with right arm radicular pain and symptoms of cervical radiculopathy in a C7 distribution and cervical myelopathy. An MRI scan confirmed a large right C6-7 disk herniation causing a combination of C7 root compression and cord compression. She had been refractory to medical management. DESCRIPTION OF PROCEDURE: This patient was taken to the operating room on June 06, 2016, placed supine with her head supported on a donut, placed under general anesthesia, prepped and draped sterile. The right side of the neck was infiltrated with 0.5% plain Marcaine. An incision was made transversely on the right side of the neck extending from the midline to the sternocleidomastoid. Weitlaner retractors were placed and the incision was carried down through the subcutaneous tissues to the platysma the platysma was incised and blunt dissection was used to create a plane just medial to the sternocleidomastoid. The carotid was palpated and mobilized laterally. The esophagus and trachea were mobilized medially with an appendectomy retractor. The blunt dissection was carried into the prevertebral space. Bent spinal needles were placed at the C5-6 and C6-7 levels and the placement of these markers was confirmed with an intraoperative lateral C-spine x-ray. The C5-6 marker was removed and the C6-7 marker was removed and the disk space was marked with the monopolar. Deep retractors were then placed with the blades beneath the longus coli musculature and distracted open. Chaseley pins were placed into the vertebral bodies of C6 and C7 and distracted open. The microscope was then brought into position, sighting down the C6-7 disk space. The C6-7 annulus was incised with the monopolar and the disk material was removed piecemeal with the curette. The high-speed bur was then used to take down the anterior and posterior osteophytes and to widen the disk space. The posterior longitudinal ligament was then resected and a large free disk fragment was encountered on the right side. The fragment was removed. This decompressed the spinal cord as well as the right C7 root. It was possible to remove the posterior longitudinal ligament, undermining the ligament in the central portion of the canal, and to decompress the neural foramen of the right C7 root using the Kerrison high-speed drill and curette. Following this decompression, the disk space at C6-7 was prepared for the fusion using the rasp set, rasping to 8 mm. A slightly larger graft measuring 9 mm and tapering to 7 mm was then placed at the C6-7 level. Prior to the placement of the bone graft. The disk space was irrigated with antibiotic solution and inspected. Hemostasis had been achieved with the Gelfoam, which was subsequently removed. The bone graft was placed at the C6-7 level, distraction was released, and the allograft bone was held firmly in position. A titanium dynamic plate was then selected to span the C6-7 level. The plate is a Baxter plate manufactured by [employer]. The Baxter plate measured 17 mm and it was secured to the vertebral bodies of C6 and C7 with fixed-angle self-drilling 12 mm titanium screws. The screws were all locked into position. Following the placement of the screws, the spacing bar was removed from the titanium plate. The wound was then irrigated and inspected for hemostasis. Hemostasis was achieved with the bipolar electrocautery. A KVNG drain was placed at the base of the wound, brought out through a separate stab wound, and hooked up to bulb suction. The platysma was then approximated with interrupted sutures of 0 Vicryl. The skin was closed with 4-0 Vicryl using a subcuticular stitch. Steri-Strips were applied to the skin, which was dressed with Telfa, gauze, and tape, and the patient was placed in a soft cervical collar.
[2016-06-06] MEDS ORDERED: 0.9% Sodium Chloride 250 ML ONE (17:45)
[2016-06-06] MEDS: Acetaminophen IV 1,000 MG in IV Premix 1 EACH IV SCH (17:51)
[2016-06-06] MEDS: Lactated Ringer's 1,000 ML IV SCH (17:52)
[2016-06-06] MEDS: CeFAZolin Inj 2 GM in IV Premix 1 EACH IV SCH (19:42)
[2016-06-06] MEDS: Fluticasone 0.05% 15 Spray/2 Gm 16 Gm Nasal Spray NOSTRIL SCH (20:43)
[2016-06-06] MEDS: Senna-Docusate 8.6-50 mg Tablet PO SCH (20:46)
[2016-06-06] MEDS ORDERED: lamoTRIgine 25 mg Tablet PO SCH (21:00)
[2016-06-07] MEDS: Acetaminophen IV 1,000 MG in IV Premix 1 EACH IV SCH ×3 (00:14→12:21)
[2016-06-07] MEDS: Benzocaine (Hurricaine) 20% Unit-Dose Spray MUC_MEMBRM PRN ×2 (00:14→06:38)
--- NOTE | 2016-06-07 01:35 | NUR ---
Breathing exercises Patient using incentive spirometer 3x so far this shift. Patient voiding via bedside commode. AOX3. Rm air at 95%. Hurricane spray used 1x for sore throat.
[2016-06-07] MEDS: Dexamethasone 4 mg/mL Inj IVPUSH SCH ×3 (02:44→15:24)
[2016-06-07] MEDS: CeFAZolin Inj 2 GM in IV Premix 1 EACH IV SCH (03:55)
[2016-06-07] MEDS: hydrOXYzine Pamoate 25 mg Capsule PO PRN ×2 (04:56→12:21)
[2016-06-07 05:08] VITALS: BP 134/87; PULSE 64; RESP 17; O2SAT 97
[2016-06-07] MEDS: Lactated Ringer's 1,000 ML IV SCH ×2 (06:52→10:29)
[2016-06-07] MEDS ORDERED: BUSP30TA2 PO (07:59)
[2016-06-07] MEDS ORDERED: LAMO150T2 PO ×2 (08:04→08:07)
[2016-06-07] MEDS: BusPIRone 15 mg Dividose Tablet PO SCH ×2 (08:11→15:23)
[2016-06-07] MEDS: Senna-Docusate 8.6-50 mg Tablet PO SCH (08:11)
[2016-06-07] MEDS: Fluticasone 0.05% 15 Spray/2 Gm 16 Gm Nasal Spray NOSTRIL SCH (08:12)
--- NOTE | 2016-06-07 10:15 | PCM.DISURG ---
Surgical Discharge Instruction Date of Service Jun 07, 2016 Dates of Hospitalization Date of Hospital Admission 06/06/2016 Providers Admitting Physician: Primary Care Physician: Ishmael Crawford MD Attending Physician: Kelechi Villagomez MD Discharge Diagnosis Discharge Diagnosis Status post C6-7 anterior cervical discectomy and fusion, with allograft bone, & anterior cervical plating from C6-7 Post Operative diagnosis Status post C6-7 anterior cervical discectomy and fusion, with allograft bone, & anterior cervical plating from C6-7 Additional Instructions Discharge Instructions Anterior Cervical Discectomy and Fusion What is my recovery like? The hospital stay is usually overnight. After the surgery, you might have a sore throat. This is very common due to the retraction (moving) of the esophagus and trachea. The sore throat usually resolves in 1-2 weeks. Drinking lots of fluids will help improve the symptoms. The cervical collar should be worn at night and for comfort only during the day. On your postoperative follow- up appointments, your Doctor will perform X-rays to see how well everything is healing. What are my restrictions? You should not lift anything heavier than five pounds. Avoid excessive movements of your neck until instructed specifically by your Doctor. Can I Shower? You may shower when you go home. You must remove the outside dressing on the 7th day after surgery, or change dressing as needed if soiled or saturated ( replacing new sterile gauze & water proof dressing) otherwise leave alone. The small pieces of tape (steri-strips) directly on top of the incision may get wet. The steri-strips will fall off on their own. Can I drive? No, you should not drive until specifically given permission from your Doctor in a follow up appointment. Most Patient's can drive in 2-3 weeks if they are not taking narcotic pain medications or muscle relaxers. You may ride in a car, but should avoid trips longer than two hours in duration. When can I return work / sports? Your Doctor will discuss your return to work with you on your first postoperative follow-up appointment. Most patients may return to work within 2 weeks for sedentary jobs. More physically demanding jobs may require 3-6 months of healing before such work can be considered. When should I call the doctor? You should call your Doctor or go to the Emergency Department if you develop chest pain, shortness of breath, oversedation, a temperature greater than 101.5 F, severe uncontrolled pain or weakness, loss of bowel or bladder function, choking, swelling, lots or drainage, pus discharge or constipation. Instructions Regarding Comfort & Pain Medication Use: During the recovery period , even with the use of pain medication, you may experience pain at the site of surgery. You may also have the same type of pain you had before surgery. Please use your pain scale as a guide for taking your pain medication. When your pain is greater than 4 out of 10, or when your pain reaches your personal tolerable level of pain, take your pain medication as prescribed. Use your pain medication on an 'as needed' basis. This means if your pain level is within your tolerable level of pain you DO NOT need to take the medication. As you get better, you will notice you can increase the time interval between doses and decrease the number of tablets you are taking, gradually taking less and less pain medication. Taking pain medication when it is not necessary (for example when your pain is tolerable or acceptable) can result in dangerous side effects and over- sedation. Signs and symptoms of over-sedation include: drowsiness, excessive sleeping, slow or difficult breathing, slurred speech, impaired thinking, confusion, impaired motor coordination. If you have any of these symptoms stop taking the medication and immediately contact your doctor. IF SYMPTOMS ARE LIFE THREATENING CALL 911. To decrease pain and swelling, frequently apply an ice pack for 20 min intervals with at least one hour off. When to take Acetaminophen for pain? If you don't have liver problems, allergies and/or Tylenol is not in your current pain medication. Take Extra Strength Tylenol 500mg 2 tabs by mouth every 6 hours as needed for pain. DO NOT EXCEED 8 TABS PER DAY. Follow Up Plan Follow Up Plan Follow-up with physician offset press assistant and outpatient neurosurgical clinic in 1 week for wound check. Follow-up Provider (F9): Ben Monae PA-C Additional Information Attending Statement All documentation reviewed & orders authorized by Dr. Kelechi Villagomez M.D. Ben Monae PA-C Jun 07, 2016 10:15
[2016-06-07 10:19] VITALS: BP 120/73; PULSE 69; RESP 18; O2SAT 95
--- NOTE | 2016-06-07 10:22 | DRSVH ---
PROCEDURE: X-RAY CERVICAL SPINE, 1 VIEW INDICATIONS: S/P C6-7 ACDF, Allograft, & Plate TECHNIQUE: Single lateral view of the cervical spine acquired. COMPARISON: [facility], , XR CERVICAL SPINE 1VW, 06/06/2016, 11:52. FINDINGS: Bones: Prior ACDF C6-C7 with surgical hardware and bone graft in expected position. Loss of lordosis . Soft tissues: No prevertebral soft tissue swelling. IMPRESSION: Recent ACDF C6-C7. Dictated by: eKn Lee RRA Interpreted: Luzmaria Early MD on 06/07/2016 at 10:21 Transcribed by: NINA on 06/07/2016 at 10:22 Approved by: Luzmaria Early MD, PhD on 06/07/2016 at 17:17
--- NOTE | 2016-06-07 10:26 | PCM.DC.SUR ---
Discharge Summary Date of Service: Jun 07, 2016 Date of Hospital Admission: 06/06/2016 Date of Operation(s): 06/06/2016 Date of Discharge: 06/07/2016 Diagnosis at Time of Discharge Status post C6-7 anterior cervical discectomy and fusion, with allograft bone, & anterior cervical plating from C6-7 Problems: Operation C6-7 anterior cervical discectomy and fusion, with allograft bone, & anterior cervical plating from C6-7 Brief History and Physical: Patient: Opal Can Date of : 1970 Visit Type: Pre Op Visit Date: 05/22/2016 01:00 PM This 45 year old female presents for Preop C6-7 ACDF w/ allograft & plating. History of Present Illness: 1. Preop C6-7 ACDF w/ allograft & plating Opal Can is a 45 year old female referred by Primary Care Provider (PCP) Dr. Jasmine Vigil M.D. who presents today's date 05/22/2016 for a preoperative type of appointment concerning the decision for surgery involving C6-7 anterior cervical discectomy and fusion, with allograft bone, & anterior cervical plating from C6-7 secondary to a diagnosis of cervical disc herniation with myeloradiculopathy with related complaints of severe, intractable, and debilitating headache, neck pain, & spasm referred & radiating to bilateral shoulders & right upper extremity with numbness, paresthesias, dysesthesias & weakness including difficulty with coordination, dexterity, & bladder spasticity. This patient was last evaluated by Dr. Kelechi Villagomez M.D. on 05/18/2016 documenting a 4 year history of mild constant local neck pain with flareups of more intense pain associated with headache and stiffness. She is also had episodes of radiating pain and right shoulder blade over the past 4 years that usually occur in the morning when she first wakes up. She developed severe right arm pain primarily involving the posterior forearm and middle digits. She reports constant numbness and paresthesias in the right hand and middle digits in a C7 distribution. She was seen in the emergency room 04/26/2016 for intractable neck and right arm pain. An MRI scan of the cervical spine show a right C6-7 disc protrusion causing a subtle compression of the right anterior cord, lateral recess stenosis and compression of the right C7. She was discharged from the emergency room with a supply of oral steroids, anti- inflammatory agents, muscle relaxants and narcotic analgesics. She was seen in consultation urgently by Neurosurgery on 04-27-2016 and referred to her primary care provider for management of her pain control and a trial of medical management. It should be noted that this patient has a history of cigarettes for the past 25 year, but quit smoking 9 days ago, to prepare for surgery. This patient has some symptoms suggestive of cervical myelopathy including tightness of the musculature in the mid thoracic region, jitteriness in her hands, some loss of coordination in her hands with deterioration of her handwriting and bladder spasticity voiding 2-3 times at night over the past 2-3 years. She had a progression of right hand numbness, paresthesias and manufacturers service representative weakness, and was here for re-evaluation. Because of the progression of symptoms of cervical myelopathy and radiculopathy, she will be scheduled promptly for surgery, C6-[address] Kelechi Villagomez M.D. the patient has cervical disc herniation causing significant symptomatic & intractable myeloradiculopathy indicating neurosurgical decompression, fusion, & instrumented stabilization. Dr. Villagomez and the patient discussed all the risks and benefits associated with the proposed procedure as well as reasonable expectations with regards to surgical outcomes & the patient elected to proceed with surgery as planned. The patient denies any related complete or acute loss of control of bowel or bladder function, saddle paresthesia or anesthesia. The patient has a pertinent positive past medical, surgical and social history for tubal ligation, colposcopy, benign breast lumpectomy, history of constipation, depression, anxiety, & just quit smoking after 25 years. The patient's related complaints have been a serious detriment to their happiness and activities of daily living. Having failed conservative treatment the patient presents today for their decision for surgery appointment involving C6-7 anterior cervical discectomy and fusion, with allograft bone, & anterior cervical plating from C6-7 for treatment of cervical disc herniation with myelopathy & radiculopathy; related to severe, intractable, and debilitating headache, neck pain, & spasm referred & radiating to bilateral shoulders & right upper extremity with numbness, paresthesias, dysesthesias & weakness including difficulty with coordination, dexterity, & bladder spasticity. The procedure is scheduled to be performed by Dr. Kelechi Villagomez M.D. on 2016. Problem List: Problem Description Current smoker Medical/Surgical/Interim History Reviewed, no change. Last detailed document date:05/22/2016. Family History: Reviewed, no changes. Last detailed document date:05/22/2016. Social History (Reviewed, updated) 05/22/2016 Tobacco use reviewed. Preferred language is Bhutanese. The patient does not need an chef head. Smoking status: Former smoker. Smoking Status Use Status Type Smoking Status Years Used Total Pack Years yes Cigarette Former smoker Allergies: Ingredient Reaction Medication Name Comment NO KNOWN ALLERGIES Reviewed, no changes. Review of Systems System Neg/Pos Details MS Positive Back pain, Muscle weakness, Neck stiffness. Neuro Negative Dizziness, headache and seizures. ENMT Negative Hearing loss. Integumentary Negative Mrsa and rash. Negative Dysuria, urge incontinence and urinary incontinence. GI Negative Abdominal pain, constipation, diarrhea, nausea and vomiting. Endocrine Negative Weight gain and weight loss. Cardio Negative Chest pain, irregular heartbeat/palpitations, leg swelling and pacemaker. Constitutional Negative Chills and fever. Vic/Lymph Negative Blood clots. MS Negative Bone/joint symptoms. Eyes Negative Double vision and vision loss. Psych Negative Anxiety and depression. Respiratory Negative Dyspnea, apnea and wheezing. Vital Signs Height Time ft in cm Last Measured Height Position % 12:51 PM 5.0 8.50 173.99 03/27/2014 Weight/BSA/BMI Time lb oz kg Context % BMI kg/m2 BSA m2 12:51 PM 195.80 88.813 dressed with shoes 29.34 2.07 Blood Pressure Time BP mm/Hg Position Side Site Method Cuff Size 12:51 PM 124/78 sitting left wrist automatic adult Temperature/Pulse/Respiration Time Temp F Temp C Temp Site Pulse/min Pattern Resp/ min 12:51 PM 97.2 36.2 84 regular Pain Scale Time Pain Score Method 12:51 PM 3/10 Numeric Pain Intensity Scale Measured By Time Measured by 12:51 PM Rosa Vasquez MA Screening Summary:o The following were reviewed: tobacco use Physical Exam Exam Findings Details Comments WD/WN, female who is AO x 3, cooperative,& appears to be in NAD w/ language & speech that is intact & fluent. There is no evidence of recent or remote memory impairment. The patient's knowledge is appropriate for age & level of education w/ a pleasant affect & euthymic mood. Ambulates w/ no difficulty. NC/AT, PERRL, EOMI, w/o facial droop, hearing grossly intact, nostrils patent, oral cavity and pharynx normal. Neck supple, w/o LAD or thyromegaly. Heart reveals RRR w/o audible murmurs Lungs CTAB Abdomen is NT/ND Decreased ROM of Cervical Spine Neg Spurlings, positive Hoffmans right, Neg Lhermittes Neg Tinnels, Neg Phalens, tenderness over the right cubital tunnel causing pain in an ulnar distribution to the mid forearm Motor Strength: 4+ /5 sensation right tricep & right hand manufacturers service representative 4/5, otherwise 5/ 5 throughout in UEs and LEs Diminished sensation in the right hand in a C6 & C7 distribution DTRs, are 2+ in UEs and LEs, no clonus Assessment/Plan # Detail Type Description 1. Assessment Cervical myelopathy with cervical radiculopathy (M47.12). 2. Assessment Preop examination (Z01.818). Patient Plan We including your Attending Surgeon have discussed the risks and benefits associated your scheduled procedure which you have verbally acknowledged understanding including but not limited to the possibility of an outcome that we are unable to predict or was not mentioned. 1. You are scheduled for a C6-7 anterior cervical discectomy and fusion, with allograft bone, & anterior cervical plating from C6-[address] Kelechi Villagomez M.D. at [facility] on 06/06/2016. 2. Check in time is 11:30 AM. Also please ignore instructions below if told otherwise by your preadmission nurse or if you do not take the medications listed below. 3. Nothing to eat after midnight the night before surgery. You may take all of your "approved" medications with small sips of water. Remember to take your a.m. hypertension medication if it is a beta mahad and ends in "olol. Otherwise ask your doctor if you need to hold your a.m. hypertension medication. 4. No aspirin, ibuprofen, Naprosyn, or other NSAIDs starting 7 days prior to surgery. 5. Please stop Warfarin/Coumadin or other blood thinners such as Plavix, Aggrenox, or Xarelto 7 days prior to your surgical procedure and follow specific instructions from your prescribing provider. 6. Please stop Lovenox bridging in the morning one day prior to procedure. 7. Please stop Suboxone/Buprenorphine at least 4 days prior to procedure. 8. Go to the hospital today to get her preoperative testing done. Take the order form to the surgery desk on the second floor of the hospital, [facility] (main entrance next to the emergency entrance). I will notify you if there is any test results that require further workup prior to surgery. 9. Follow the instructions you were given today, use the cleansing cloths the night before as well as the morning of her surgery. 10. If you are prescribed inhalers, CPAP or BiPAP machines you use at home bring along with you to the hospital. 11. ONLY If you take medications for Diabetes: If you have an insulin pump continue lowest (typically night-time) basal rate into the a.m. If you do not have a pump check h your a.m. blood sugar and hold insulin if BS less than 100. If you are taking long-acting, intermediate acting (NPH) or 70/30 preparation : Take half on day of procedure. If you are taking ultra long-acting insulin such as glargine, Lantus either at night or in the a.m. continue as scheduled ( including day of surgery). If you take short acting regular insulin (insulin not delivered via pump) discontinue on day of procedure. 12. Please call if you have any questions before your surgery: [phone]. Today's instructions/counseling include(s) Pre-operative instructions given to the patient and or legal customer contact representative(s) orally and in writing. 13. Our office will contact you if there are any test results that require further workup prior to surgery. Provider Plan The patient's history and examination as well as radiological findings were reviewed with Dr. Kelechi Villagomez M.D. and conveyed the patient in detail. The findings are consistent with cervical disc herniation with myeloradiculopathy and are most likely the cause of the patient's severe, intractable, and debilitating headache, neck pain, & spasm referred & radiating to bilateral shoulders & right upper extremity with numbness, paresthesias, dysesthesias & weakness including difficulty with coordination, dexterity, & bladder spasticity. The patient has failed extensive conservative treatment for this condition. The treatment options were discussed with the patient. The options include attempt to live with the condition, reattempt conservative treatment, try a pain management intervention / injection or consider a surgical intervention. We are not extremely optimistic that further conservative treatment, pain management intervention and/or injection will adequately resolve the patient's symptoms of severe, intractable, and debilitating headache, neck pain, & spasm referred & radiating to bilateral shoulders & right upper extremity with numbness, paresthesias, dysesthesias & weakness including difficulty with coordination, dexterity, & bladder spasticity. Therefore we recommend C6 7 anterior cervical discectomy and fusion, with allograft bone & anterior cervical plating from C6-7. The patient was provided/offered educational materials pertaining to their diagnosis and the above discussed procedure. We discussed the risks and benefits associated with this surgery. A spine model was used to explain the nature of this type of surgery. The risk of the required anesthesia was also mentioned including but not limited to organ failure such as heart attack, pneumonia and stroke even . The risk of this type of surgery was also mentioned. Including but not limited to an unsuccessful outcome, residual symptoms, odynophagia, dysphasia or sore throat, referred or radiating posterior spinal myofascial inflammatory pain or spasm, post operative instability, instrumentation failure, sensory changes, blood loss, blood clots, wound infection, spinal cord or nerve damage, CSF or lymph leak, damage to neighboring structures such as the recurrent laryngeal nerve, perforation of the esophagus or trachea, adjacent level disease, contraindication to MRI, Mack's Syndrome, vision loss, voice change, resulting in temporary or permanent dysfunction, even disability, paralysis, and . The recovery of this type of surgery was also mentioned. The chances for improvement of the related upper extremity cervical radiculopathy symptomology at one year is 70-80%. The chances of improvement of local mechanical neck pain is 50%. This includes but is not limited to reasonable expectations for the treatment of myelopathy involving the surgical decompression of the cervical spinal cord; which will stop the progression of the patient's condition but cannot guarantee improvements in any associated physical complaints. The patient verbalized understanding all the risks and benefits, knowing that it is impossible to predict or guarantee every surgical outcome; and would like to proceed with the above discussed procedure anyways. Surgery is scheduled for 06/06/2016. The standard [facility] preoperative screening tests, medicine restrictions, and logistical protocols apply. Any preoperative testing is within normal limits to undergo the above discussed procedure unless otherwise noted in the medical record. Medications (added, continued or stopped this visit): Start Date Medication Directions Stop Date 03/27/2014 buspirone 10 mg tablet take 1 tablet by oral route 3 times every day 05/22/2016 docusate sodium 250 mg capsule take 1 capsule by oral route 2 times every day 11/25/2015 fluticasone 50 mcg/actuation nasal spray,suspension inhale 2 spray by Intranasal route every day in each nostril lamotrigine 25 mg tablet take 2 tablet by oral route 2 times every day Naprosyn take 1 tablet by oral route 2 times every day with food oxycodone-acetaminophen 5 mg-325 mg tablet take 1 tablet by oral route every 6 hours as needed 06/05/2016 Percocet 7.5 mg-325 mg tablet take 1 - 2 tablet by oral route every 4-6 hours as needed not to exceed 8 tablets per 24hrs prednisone take 1 tablet by oral route 3 times every day Valium take 1 tablet by oral route 2 times every day and 2 tabs each evening 06/05/2016 Valium 5 mg tablet take 1 - 2 Tablet by oral route every 8 hours for spasm Counseling/Educational Factors: Counseling / educational factors reviewed. Counseling / educational factors reviewed. This is a visit of 60 minutes. 50 minutes were spent counseling. This document may have been created using voice recognition software or other electronic means and may contain inadvertent jewelry polisher errors. Provider: Ben KIM 05/22/2016 03:24 PM Document generated by: Ben Monae 05/22/2016 03:24 PM CC Providers: [place] [address]- [place] [address] [address] [place] [address] w daniel palmer i kashmir i darius s Drea broderick g Hospital Course: Hospital Course: The patient was admitted through same day surgery and subsequently underwent a C6-7 anterior cervical discectomy and fusion, with allograft bone, & anterior cervical plating from C6-7. The patient tolerated the procedure well. The patient was then was transferred to PACU and then to the OSC floor. The patient was admitted for postoperative pain control, PT/OT, supervised for anxiety, etc. Co-morbidities with nurse monitoring, continuous pulse oximetry, and discharge planning. The Patient's overnight course was within normal limits. Currently the patient has complaints of mild surgical site pain, moderate posterior referred myofascial inflammatory pain/spasm adequately controlled with the current postoperative by mouth analgesics & muscle relaxants. The patient also has a mild postoperative hoarse voice & she has minimal difficulty with liquids which has improved with instructions to take only small steps at a time. There is significant improvement of the patient's residual myeloradiculopathy symptoms especially with regards to her right upper extremity cervical radiculopathy symptomology. The patient denies headache, severe sore throat or dysphagia, chest pain, shortness of breath, abdominal pain, nausea, vomiting, constipation, diarrhea, or any new onset &/or location of pain, weakness or paresthesias aside from the surgical site. PHYSICAL EXAM This is a well developed, well nourished, female who is alert, cooperative, and appears to be in no acute distress with a [] affect & euthymic mood. Exam of the head is normocephalic. PERRL, EOMI, without facial droop, hearing grossly intact, nostrils patent, oral cavity and pharynx normal. Voice is hoarse Exam or the heart reveals regular rate and rhythm without audible murmurs The lungs are clear to auscultation bilaterally. The abdomen is non- tender and non-distended. Exam of the cervical surgical wound reveals that it is clean, dry, and intact; without signs of infection, inflammation, and/or hematoma. There will be a rates of output from the surgical drain less than 30 mL in an 8 hour period. Gross exam of the extremities reveals strength & sensation are grossly intact within the patient's normal baseline limits except improved strength & diminished sensation in the right upper extremity. The patient was eventually able to get out of bed and ambulate within acceptable limits. Therapy services made recommendations for disposition. Flatus was appreciated and the patient was able to void without significant difficulty. The pain was gradually under control. The patient was afebrile on discharge. The patient's incision(s) was clean, dry and intact. The dressing was changed to the Surgeon's specifications. The output from the wound drain will be less than 30cc's in an 8 hour period prior to discharge and therefore the drain will be removed. Otherwise the patient will stay overnight for reevaluation and likely discharge in the a.m. The patient progressed well with rehabilitation and was subsequently discharged to home in stable condition. We also notify the patient that we sent a Medrol Dosepak electronically to her pharmacy to use as directed. The patient developed a postoperative hoarse voice which was evaluated by Dr. Kelechi Villagomez recommending that this condition is transient & will likely resolve with time. The patient verbalized understanding. The patient further further also verbally affirmed understanding when given clear instruction regarding the postoperative care and follow-up including but not limited to seeking immediate medical attention for chest pain, shortness of breath, oversedation, a temperature greater than 101.5 F, severe uncontrolled pain or weakness, loss of bowel or bladder function, choking, lots or drainage, pus discharge or constipation. All questions were answered. Disposition: Home in stable condition. Follow-up Plan: Follow-up with physician religious assistant in outpatient neurosurgical clinic in 1 week for wound check. Buspirone (Buspirone) 30 Mg Tablet 30 MG PO BID (Reported) Docusate Sodium (Docusate Sodium) 250 Mg Capsule 250 MG PO BID PRN PRN For Constipation (Reported) Fluticasone Propionate (Fluticasone Propionate Nasal) 16 Gm Sullivan.susp 2 SPRAY NS BID (Reported) Lamotrigine (Lamotrigine) 150 Mg Tablet 150 MG PO HS (Reported) oxyCODONE-Acetaminophen 7.5-325 mg (oxyCODONE-Acetaminophen 7.5-325 mg) 1 Each Tablet 1-2 TAB PO Q4H PRN PRN For Pain (Reported) Discharge Medications: Narcotic analgesics & muscle relaxants were prescribed and the patient's preoperative appointment & a prescription for Medrol Dosepak has been sent electronically to her pharmacy. Attending Statement: All documentation reviewed & orders authorize by Dr. Kelechi Villagomez M.D. copies to: Jasmine Vigil MD, Scott PA-C Jun 07, 2016 10:26
--- NOTE | 2016-06-07 10:40 | NUR ---
Social Work- Initial Assessment/Readiness for Discharge Data: Pt is a 45 year old female admitted 06/06/16 for herniated nucleus pulposus per H&P. Pt's insurance is [employer]. Pt's PCP is Ishmael Crawford MD. SW spoke with pt at bedside regarding discharge plan, SW role explained. Pt was alert and oriented x3. Pt resides in [place] with her parents where she remains independent with her ADLs. Pt has no HH or SNF history, no DME experience, no LTC insurance or VA benefits, and continues to drive. SW offered DPOA information, SW left paperwork. Pt to discharge home when medically stable, anticipate later today, with parents to transport via POV. SW left phone number and plan on whiteboard. No anticipated discharge needs. SW will continue to follow if needs arise. Assessment: Pt who is independent at base. Plan: Pt to discharge home with parents to transport via POV. No anticipated discharge needs. SW will follow if needs arise. WICHO Neal
--- NOTE | 2016-06-07 10:55 | NUR ---
Evaluation completed. Please go to "Notes" then click on "Assessments and Notes" (bottom left corner of screen). Then select appropriate discipline tab on top of screen.
--- NOTE | 2016-06-07 13:54 | NUR ---
Social Work- Discharge Data: EMR reviewed. Pt is on day 1 of hospitalization for herniated nucleus pulposus per H&P. Pt to discharge home today with parents to transport via POV. No discharge needs. Assessment: Pt who is independent [place] base. Plan: Pt to discharge home with parents to transport via POV. No discharge needs. WICHO Neal
[2016-06-07] MEDS: HYDROmorphone 1 mg/mL Inj IVPUSH PRN (15:24)
--- NOTE | 2016-06-07 15:52 | NUR ---
DC IV removed. KVNG drain removed with no complications.Dry gauze and tape used to cover. .5mg Dilaudid given IV for comfort measures. Dressing changed incision with Steristrips clean dry and intact with no drainage noted. Nonstick gauze placed over incision with Tegaderm. Dressing changes reviewed with patient and mother. Extra dressing material snet home with pt. Pt denies CP, SOB, Nausea. Pain controlled. All discharge instructions reviewed with pt and mother who state that understand all instructions. Care discontinues
[2016-06-07] MEDS ORDERED: Ketamine 10 mg/mL 20 mL Inj ONE (15:57)
[2016-06-07] MEDS ORDERED: HYDROmorphone 2 mg/mL Inj ONE (15:57)
[2016-06-07] MEDS ORDERED: fentaNYL-PF 50 mCg/mL 2 mL Inj ONE (15:57)
[2016-06-07] MEDS ORDERED: Remifentanil 1 mg/3 mL Inj ONE (15:57)
== END 2016-06-07 15:58 | disposition home or self-care (01) | DRG 472 ==
LOC: SAS 09:53 → OSC 15:48 → UNDOADMIN 15:48 → SAS 15:48 → OSC 15:48
PROVIDERS: ADMIT Neurological Surgery; ATTEND Neurological Surgery
PROC: 0RG10K0 Fusion of Cervical Vertebral Joint with Nonautologous Tissue Substitute, Anterior Approach, Anterior Column, Open Approach (ICD-10-PCS; 2016-06-06)
PROC: 0RT30ZZ Resection of Cervical Vertebral Disc, Open Approach (ICD-10-PCS; principal; 2016-06-06 12:00)
DX: M50.123 Cervical disc disorder at C6-C7 level with radiculopathy (principal); M50.023 Cervical disc disorder at C6-C7 level with myelopathy; Z87.891 Personal history of nicotine dependence; F41.9 Anxiety disorder, unspecified